=== PATIENT | male | born 1960 | race Caucasian/White ===

== ENCOUNTER 2016-10-17 10:18 | Emergency (ER) | payer OTHER ==
[2016-10-17 10:34] VITALS: BP 142/94; PULSE 81; RESP 16; TEMP 98.4; O2SAT 94
[2016-10-17] MEDS ORDERED: SKIN ADHESIVE (DERMABOND) 1 EACH TP ONE ×2 (10:40→11:00)
--- NOTE | 2016-10-17 10:49 | EDPHY ---
H & P Time Seen by Provider: 10/17/16 10:28 HPI/ROS: CHIEF COMPLAINT: Finger laceration HISTORY OF PRESENT ILLNESS: 56-year-old gentleman treatment tree with a pocket knife when he lacerated his left index finger at the level of the PIP joint. He reports that the wound has not stopped bleeding. This occurred 24 hours ago. He does take aspirin for history of atrial fibrillation. No other injuries. No lightheadedness or dizziness. He was able to get the bleeding to stop intermittently with pressure bandage. REVIEW OF SYSTEMS: A ten point review of systems was performed and is negative with the exception of the items mentioned in the HPI PAST MEDICAL HISTORY: Atrial fibrillation, on aspirin SOCIAL HISTORY: . GENERAL APPEARANCE: Pleasant, conversant. No distress. FOCUSED EXAM OF left hand: Flap-like superficial laceration is present just proximal to the PIP joint and walk. Deep structures are seen. Neurovascularly intact. Normal extension and flexion.. Neurovascular exam: Good capillary refill, normal motor exam, normal neurologic exam. Smoking Status: Current some day smoker Constitutional: Initial Vital Signs Temperature (C) 36.9 C 10/17/16 10:20 Heart Rate 81 10/17/16 10:20 Respiratory Rate 16 10/17/16 10:20 Blood Pressure 142/94 H 10/17/16 10:20 O2 Sat (%) 94 10/17/16 10:20 O2 Delivery Mode Room Air Allergies/Adverse Reactions: Penicillins Allergy (Severe, Verified 10/17/16 10:28) Other-Enter Comments clarithromycin Allergy (Unknown, Verified 10/17/16 10:28) hydrocodone bitartrate [From Vicodin] Allergy (Verified 10/17/16 10:28) Other-Enter Comments Home Medications: Medication Instructions Recorded Aspirin 81mg 09/28/10 Meclizine HCl 25 mg (RX,OTC) PRN 10/17/16 Pravastatin Sodium 10/17/16 MDM/Departure - [facility] ED Course/Re-evaluation: Dermabond was applied as well as a Steri-Strips and a bulky dressing. Patient was advised regarding limited movement of the hand and finger for the next 24 hours. Return if needed. Please see discharge instructions. Differential Diagnosis: Differential diagnosis for the patient's injury was considered including but not limited to contusion, abrasion, laceration, tendon injury. - Depart Disposition: Home, Routine, Self-Care Clinical Impression: Laceration Condition: Good Instructions: Finger Laceration (ED), Skin Adhesive Care (ED) Additional Instructions: Keep wound clean and dry. Keep the dressing in place for the next 24 hours. After that, you may dress the wound with a Band-Aid. The Steri-Strips will start to come off within the next several days. The skin glue will start to peel off within the next 5-6 days. Do not put antibiotic cream directly on the skin glue as that will cause it to dissolve sooner. No soaking wound in water. Showers and simple hand washing is okay. Referrals: Tiffanie Dickinson MD [Primary Care Provider] - As per Instructions
== END 2016-10-17 11:12 | disposition home or self-care (01) ==
LOC: CED 10:18
DX: S61.211A Laceration without foreign body of left index finger without damage to nail, initial encounter (principal); F17.200 Nicotine dependence, unspecified, uncomplicated; Z79.82 Long term (current) use of aspirin; W26.0XXA Contact with knife, initial encounter